=== PATIENT | female | born 1985 | race African-American/Black ===

== ENCOUNTER 2018-08-27 00:19 | Emergency (ER) | payer OTHER ==
[~2018-08-27] VITALS: Ht 188 cm; Wt 167.8 kg
[2018-08-27 01:10] LABS: BILIRUBIN,URINE NEGATIVE (NEG); CLARITY,URINE CLEAR; COLOR,URINE YELLOW; NITRITE,URINE NEGATIVE (NEG); PROTEIN,URINE NEGATIVE (NEG-TRACE)
[2018-08-27 01:29] LABS: RBC,URINE OCC /HPF (0-2); WBC,URINE TNTC /HPF (0-4)
--- NOTE | 2018-08-27 01:29 | PHYS DOC ---
Past Medical History Past Medical History: Hypertension, Other Additional Past Medical Histor: PCOS Past Surgical History: Tubal ligation, Other Additional Past Surgical Histo: D&C, WISDOM TEETH Alcohol Use: Occasionally Drug Use: None Adult General Chief Complaint Chief Complaint: ABDOMINAL PAIN HPI HPI Patient is a 33 yo female who presents with complaint of abdominal pressure, vaginal discharge, and change in vaginal odor. She reports that she recently began having sex with her boyfriend and the condom broke. She reports that today she noticed creamy, green pelvic discharge and change in odor. She also reports suprapubic heaviness and urinary frequency. She reports she was recently on azithromycin for URI. She denies vaginal itching, discomfort, or cottage cheese like discharge. She reports she had a tubal ligation in 2006 and has PCOS. She reports she has had trichomonas and chlamydia in the past. She does report she is allergic to PCN and that the medication causes diffuse itching. Review of Systems Review of Systems Constitutional: Denies fever or chills [] Eyes: Denies change in visual acuity, redness, or eye pain [] HENT: Denies nasal congestion or sore throat [] Respiratory: Denies cough or shortness of breath [] Cardiovascular: Denies chest pain. Denies palpitations GI: Admits suprapubic abdominal discomfort, nausea, vomiting, bloody stools or diarrhea [] : Admits dysuria. Denies hematuria. Admits green vaginal discharge and new vaginal odor. Musculoskeletal: Denies back pain or joint pain [] Integument: Denies rash or skin lesions [] Neurologic: Denies headache, focal weakness or sensory changes [] All other systems were reviewed and found to be within normal limits, except as documented in this note. Current Medications Current Medications Current Medications Medications (Trade) Dose Ordered Sig/Marivel Start Time Stop Time Status Last Admin Dose Admin Azithromycin (Zithromax) 1,000 mg 1X ONCE 08/27/18 02:00 08/27/18 02:01 DC 08/27/18 02:34 1,000 MG Ceftriaxone Sodium (Rocephin Im) 250 mg 1X ONCE 08/27/18 02:00 08/27/18 02:01 DC 08/27/18 02:36 250 MG Allergies Allergies Allergies Coded Allergies Type Severity Reaction Last Updated Verified Penicillins Allergy Severe tongue swelling 09/10/13 Yes codeine Allergy Mild hives 09/10/13 Yes Physical Exam Physical Exam Constitutional: Well developed, well nourished, no acute distress, non-toxic appearance. [] HENT: Normocephalic, atraumatic Eyes: PERRLA Cardiovascular:Heart rate regular rhythm, no murmur [] Lungs & Thorax: Bilateral breath sounds clear to auscultation [] Abdomen: Soft, no tenderness, no masses Skin: Warm, dry, no erythema, no rash. : Performed by Jimena Riley (female MS4 per patient request with EMIGDIO Denson in room). Unable to assess for CMT on bimanual exam. No labial lesions. Copious light green discharge in vagina and through cervix. Cervix friable and easily bled. Extremities: No tenderness, no cyanosis, no clubbing, ROM intact, no edema. [] Neurologic: Alert and oriented X 3, normal motor function, normal sensory function, no focal deficits noted. [] Psychologic: Affect normal, judgement normal, mood normal. [] Current Patient Data Vital Signs Vital Signs Date Time Temp Pulse Resp B/P (MAP) Pulse Ox O2 Delivery O2 Flow Rate FiO2 08/27/18 01:30 78 126/61 (82) 96 Room Air 08/27/18 00:25 99.1 16 99.1 Lab Values Laboratory Tests Test 08/27/18 00:33 08/27/18 01:00 POC Urine HCG, Qualitative Hcg negative (Negative) Urine Collection Type Void Urine Color Yellow Urine Clarity Clear Urine pH 6.0 Urine Specific [place] 1.015 Urine Protein Negative mg/dL (NEG-TRACE) Urine Glucose (UA) Negative mg/dL (NEG) Urine Ketones (Stick) Negative mg/dL (NEG) Urine Blood Negative (NEG) Urine Nitrite Negative (NEG) Urine Bilirubin Negative (NEG) Urine Urobilinogen Dipstick 1.0 mg/dL (0.2 mg/dL) Urine Leukocyte Esterase Moderate (NEG) Urine RBC Occ /HPF (0-2) Urine WBC Tntc /HPF (0-4) Urine Squamous Epithelial Cells Mod /LPF Urine Bacteria Few /HPF (0-FEW) Urine Mucus Slight /LPF Microbiology 08/27/18 Wet Prep - Final, Complete EKG EKG [] Radiology/Procedures Radiology/Procedures [] Course & Med Decision Making Course & Med Decision Making Patient is a 33 yo female w/ complaint of suprapubic pain, green vaginal discharge, and foul smell. She reports she has recently had sex with a new partner and the condom broke. On physical exam patient is well appearing, with soft abdomen. Pelvic exam reveals no external lesions, copious green vaginal dc , and friable cervix which easily bleeds. UA reveals moderate leukocyte esterase , and TNTC WBC. Wet prep unremarkable. Patient prescribed PO bactrim for UTI. Patient also empirically treated for GC/chlamydia d/t copious dc, recent unprotected sexual encounter, and cervix which easily bleeds. Patient treated with azithromycin and Discussed with patient that if culture reveals bacteria someone from [facility] will call her with the results. Patient voiced understanding and agreement with the plan. Dragon Disclaimer Dragon Disclaimer This electronic medical record was generated, in whole or in part, using a voice recognition dictation system. Departure Departure Impression: Primary Impression: UTI (urinary tract infection) Disposition: 01 HOME, SELF-CARE Condition: STABLE Referrals: ALEIDA CARTAGENA DO (PCP) Scripts Sulfamethoxazole/Trimethoprim (BACTRIM DS TABLET) 1 Each Tablet 1 TAB PO BID, #20 TAB Prov: NICKOLAS LOWERY MD 08/27/18 NICKOLAS LOWERY MD Aug 27, 2018 01:29
[2018-08-27 01:30] VITALS: BP 126/61
[2018-08-27 01:30] LABS: BACTERIA,URINE FEW /HPF (0-FEW); SQUAMOUS EPITHELIAL CELL,UR MOD /LPF
[2018-08-27] MEDS ORDERED: SULF1TAB24 PO (01:57)
[2018-08-27] MEDS ORDERED: cefTRIAXone IM 250 MG VIAL IM ONE (02:00)
[2018-08-27] MEDS ORDERED: AZITHROMYCIN 250 MG TABLET. PO ONE (02:00)
[2018-08-29 15:20] LABS: GC PROBE Negative (Negative)
== END 2018-08-27 02:39 | disposition home or self-care (01) ==
LOC: ER 00:19
DX: N39.0 Urinary tract infection, site not specified (principal); I10 Essential (primary) hypertension; Z98.51 Tubal ligation status; Z88.0 Allergy status to penicillin; Z88.5 Allergy status to narcotic agent
CPT/HCPCS: 81001; 81025; 87086; 87491; 87591; 96372; 99283; J0696; Q0111; Q0144